=== PATIENT | female | born 1955 | race Two or more races ===

== ENCOUNTER 2024-02-04 19:15 | Inpatient (IN) | payer MEDICARE, OTHER ==
[~2024-02-04] VITALS: Ht 157.5 cm; Wt 60.8 kg
[2024-02-04 20:27] LABS: BASOPHILS % (AUTO) 0.3 % (0.0-2.0); EOSINOPHILS # (AUTO) 0.1 K/uL (0.0-0.7); EOSINOPHILS % (AUTO) 1.4 % (0.0-6.0); HEMATOCRIT 36 % (33-45); HEMOGLOBIN 11.8 g/dL (11.5-14.8); LYMPHOCYTES % (AUTO) 34.2 % (20.0-44.0); MEAN CORPUSCULAR HEMOGLOBIN 31 PG (26.0-33.0); MEAN CORPUSCULAR HGB CONC 33 g/dl (31.0-36.0); MEAN CORPUSCULAR VOLUME 94 fL (82-100); MONOCYTES # (AUTO) 1.3 K/uL (0.1-1.30); MONOCYTES % (AUTO) 15.3 % (2.0-12.0); NEUTROPHILS # (AUTO) 4.3 K/uL (1.8-8.9); NEUTROPHILS % (AUTO) 48.8 % (43.0-81.0); PLATELET COUNT (AUTO) 114 K/uL (150-450); RED BLOOD CELL COUNT(AUTO) 3.83 MIL/uL (4.0-5.2); RED CELL DISTRIBUTION WIDTH 15.2 % (11.5-15.0); WHITE BLOOD COUNT (AUTO) 8.7 K/uL (4.3-11.0)
[2024-02-04 20:31] LABS: CALCIUM, SERUM 9.5 mg/dL (8.5-10.1); CARBON DIOXIDE 27 mmol/L (21-32); CHLORIDE 102 mmol/L (98-107); CREATININE 1.4 mg/dL (0.6-1.3); GLUCOSE 174 mg/dL (74-106); POTASSIUM 3.8 mmol/L (3.5-5.1); SODIUM SERUM 136 mmol/L (136-145); UREA NITROGEN, BLOOD 36 mg/dL (7-18)
[2024-02-04 20:36] LABS: ALANINE AMINOTRANSFERASE 46 U/L (12-78); ALBUMIN 3.7 g/dL (3.4-5.0); ALCOHOL, BLOOD < 3 mg/dL (0-10); ALKALINE PHOSPHATASE 52 U/L (46-116); ASPARTATE AMINOTRANSFERASE 47 U/L (15-37); BILIRUBIN,DIRECT 0.2 mg/dL (0.0-0.2); BILIRUBIN,TOTAL 0.5 mg/dL (0.2-1.0); TOTAL PROTEIN, SERUM 7.9 g/dL (6.4-8.2)
[2024-02-04 20:37] LABS: ACETAMINOPHEN <10 ug/ml (10-30); SALICYLATE 1.2 mg/dL (2.8-20.0)
[2024-02-04 20:50] LABS: APPEARANCE,URINE CLEAR (CLEAR); BILIRUBIN,URINE NEGATIVE (NEGATIVE); BLOOD, URINE 2+ Ery/uL (NEGATIVE); COLOR,URINE YELLOW (YELLOW); KETONES,URINE TRACE mg/dL (NEGATIVE); LEUKOCYTE ESTERASE ,URINE NEGATIVE (NEGATIVE); NITRITE, URINE NEGATIVE (NEGATIVE); PH,URINE 6.5 (5.0-8.0); PROTEIN,URINE NEGATIVE (NEGATIVE); UGLUCOSE TRACE mg/dL (NEGATIVE); UROBILINOGEN,URINE 0.2 EU/dL (0.2)
[2024-02-04 21:35] LABS: ADD URINE CULTURE NO; BACTERIA,URINE None seen /HPF (None Seen); RBC,URINE 21-50 /HPF (0-2); WBC,URINE 0-2 /HPF (0-3)
[2024-02-04 21:39] LABS: ANISOCYTOSIS 1+; EOSINOPHILS % (MANUAL) 1 % (0-4); LYMPHOCYTES % (MANUAL) 44 % (16-48); MONOCYTES % (MANUAL) 11 % (0-11.0); NEUTROPHILS % (MANUAL) 44 (42-76); PLATELET ESTIMATE DECREASED
[2024-02-04 21:40] LABS: OVALOCYTES 1+
[2024-02-04 21:45] LABS: AMPHETAMINE, URINE NEGATIVE (NEGATIVE); BARBITURATE, URINE NEGATIVE (NEGATIVE); BENZODIAZEPINE, URINE NEGATIVE (NEGATIVE); CANNABINOID, URINE NEGATIVE (NEGATIVE); COCCAINE, URINE NEGATIVE (NEGATIVE); OPIATE, URINE NEGATIVE (NEGATIVE); PHENCYCLIDINE SCREEN,URINE NEGATIVE (NEGATIVE)
[2024-02-05] MEDS ORDERED: QUET25TA PO (08:48)
[2024-02-05] MEDS ORDERED: BENZ2TAB7 PO (08:48)
[2024-02-05] MEDS ORDERED: LATA7.5D EACHEYE (08:48)
[2024-02-05] MEDS ORDERED: CHOL500062 PO (08:48)
[2024-02-05] MEDS ORDERED: CLON1TAB12 PO (08:48)
[2024-02-05] MEDS ORDERED: DIVA500T2 PO (08:48)
[2024-02-05] MEDS ORDERED: QUET100T PO (08:48)
[2024-02-05 10:02] VITALS: BP 159/93; TEMP 97.9
[2024-02-05] MEDS ORDERED: MAG HYDROX/AL HYDROX/SIMETH 30 ML UDC PO PRN (11:30)
[2024-02-05] MEDS ORDERED: TEMAZEPAM 15 MG CAPSULE PO PRN (11:30)
[2024-02-05] MEDS ORDERED: clonazePAM 0.5 MG TABLET PO PRN (11:30)
[2024-02-05] MEDS ORDERED: ACETAMINOPHEN 325 MG TABLET PO PRN (11:30)
[2024-02-05] MEDS ORDERED: MAGNESIUM HYDROXIDE 30 ML UDC PO PRN (11:30)
[2024-02-05] MEDS: BLOOD SUGAR DIAGNOSTIC 1 EACH STRIP IN ONE (11:34)
[2024-02-05] MEDS ORDERED: MELA5TAB PO (11:53)
[2024-02-05] MEDS ORDERED: ACET-637 PO (11:53)
[2024-02-05] MEDS ORDERED: METF-881 PO (11:53)
[2024-02-05] MEDS ORDERED: INSULIN REGULAR, HUMAN 100 UNIT/ML 3 ML VIAL SQ PRN (13:00)
[2024-02-05] MEDS ORDERED: DEXTROSE 50%-WATER 50 ML DISP.SYRIN IV PRN ×2 (13:00→19:30)
[2024-02-05] MEDS ORDERED: *INSULIN REGULAR(HUMULIN R)HUM 100 UNIT/ML VIAL SQ PRN (13:00)
[2024-02-05] MEDS ORDERED: ACETAMINOPHEN ES 500 MG TABLET PO PRN (15:30)
[2024-02-05 16:00] VITALS: BP 167/72; TEMP 99.8; O2SAT 97
[2024-02-05] MEDS: BLOOD SUGAR DIAGNOSTIC 1 EACH STRIP VI SCH (16:35)
[2024-02-05] MEDS: BENZTROPINE MESYLATE (1 MG) 1 MG TABLET PO SCH (16:35)
[2024-02-05] MEDS ORDERED: DIVALPROEX SODIUM 500 MG TABLET.DR PO SCH (17:00)
[2024-02-05] MEDS ORDERED: BENZTROPINE MESYLATE (1 MG) 1 MG TABLET PO SCH (17:00)
[2024-02-05] MEDS ORDERED: METFORMIN XR 500 MG TAB.SR.24H PO SCH (17:00)
[2024-02-05 20:00] VITALS: BP 167/87; TEMP 98.8; O2SAT 97
[2024-02-05 20:30] VITALS: BP 167/87; TEMP 98.8; O2SAT 97
[2024-02-05] MEDS: BLOOD SUGAR DIAGNOSTIC 1 EACH STRIP IN SCH (20:53)
[2024-02-05] MEDS: INSULIN REGULAR, HUMAN 100 UNIT/ML 3 ML VIAL SQ PRN (21:01)
[2024-02-05] MEDS: LATANOPROST EYE DROP 0.005% 2.5 ML BOTTLE EACHEYE SCH (21:04)
[2024-02-05] MEDS: DIVALPROEX SODIUM 250 MG TABLET.DR PO SCH (21:04)
[2024-02-05] MEDS: OLANZAPINE ZYDIS 5 MG TAB.RAPDIS PO SCH (21:05)
[2024-02-05] MEDS ORDERED: Medication Not On Formulary EA (Melatonin 5 MG) PO SCH (22:00)
[2024-02-06] MEDS: GLUCERNA SHAKE 237 ML CAN PO SCH (07:46)
[2024-02-06 08:00] VITALS: BP 194/104; TEMP 97.6; O2SAT 98
[2024-02-06] MEDS ORDERED: hydrALAZINE HCL 25 MG TABLET PO SCH (08:30)
[2024-02-06] MEDS: hydrALAZINE HCL 25 MG TABLET PO PRN (09:19)
[2024-02-06] MEDS: CHOLECALCIFEROL 1,000 UNIT TABLET (VIT D3) PO SCH (09:19)
[2024-02-06 10:00] VITALS: BP 158/85
[2024-02-06 10:37] LABS: ALBUMIN 3.4 g/dL (3.4-5.0); BILIRUBIN,TOTAL 0.8 mg/dL (0.2-1.0); CREATININE 1.1 mg/dL (0.6-1.3); POTASSIUM 3.7 mmol/L (3.5-5.1); TOTAL PROTEIN, SERUM 7.9 g/dL (6.4-8.2)
[2024-02-06 10:45] LABS: THYROID STIMULATING HORMONE 2.454 uIU/mL (0.358-3.74)
[2024-02-06 10:46] LABS: CALCIUM, SERUM 9.9 mg/dL (8.5-10.1)
[2024-02-06 11:22] LABS: CREATININE 1.1 mg/dL (0.6-1.3)
[2024-02-06] MEDS: AMLODIPINE BESYLATE 5 MG TABLET PO SCH (13:20)
[2024-02-06 16:00] VITALS: BP 156/72; TEMP 97.8; O2SAT 96
[2024-02-06 17:51] LABS: APPEARANCE,URINE CLOUDY (CLEAR); BILIRUBIN,URINE 1+ (NEGATIVE); BLOOD, URINE 3+ Ery/uL (NEGATIVE); COLOR,URINE YELLOW (YELLOW); KETONES,URINE 1+ mg/dL (NEGATIVE); LEUKOCYTE ESTERASE ,URINE 2+ (NEGATIVE); NITRITE, URINE NEGATIVE (NEGATIVE); PROTEIN,URINE 1+ mg/dl (NEGATIVE); UGLUCOSE NEGATIVE (NEGATIVE)
[2024-02-06 19:12] LABS: ADD URINE CULTURE YES; BACTERIA,URINE 4+ /HPF (None Seen); RBC,URINE 51-80 /HPF (0-2); SQUAMOUS EPITHELIAL CELL,UR 0-2 /HPF (None Seen); WBC,URINE 21-50 /HPF (0-3)
[2024-02-06 21:04] VITALS: BP 103/64; TEMP 98.4; O2SAT 99
[2024-02-07 08:00] VITALS: BP 117/67; TEMP 98.1; O2SAT 100
[2024-02-07] MEDS: CEPHALEXIN MONOHYDRATE 500 MG CAPSULE PO SCH (11:44)
[2024-02-07 16:00] VITALS: BP 142/72; TEMP 98.7; O2SAT 95
[2024-02-07 20:23] VITALS: BP 123/73; TEMP 99.3; O2SAT 96
[2024-02-08 08:00] VITALS: BP 132/76; TEMP 97.8; O2SAT 97
[2024-02-08 16:00] VITALS: BP 121/67; TEMP 97.8; O2SAT 98
[2024-02-08 20:22] VITALS: BP 116/79; TEMP 99.1; O2SAT 98
[2024-02-09 08:00] VITALS: BP 137/87; TEMP 98; TEMP 98.1; O2SAT 98
[2024-02-09 09:23] LABS: CALCIUM, SERUM 9.9 mg/dL (8.5-10.1); CREATININE 1.3 mg/dL (0.6-1.3); POTASSIUM 3.8 mmol/L (3.5-5.1)
[2024-02-09 16:00] VITALS: BP 131/61; TEMP 98; O2SAT 97
[2024-02-09 20:00] VITALS: BP 116/66; TEMP 97.9; O2SAT 98
[2024-02-10 08:00] VITALS: BP 142/82; TEMP 98.6; O2SAT 99
[2024-02-10 16:00] VITALS: BP 115/69; TEMP 98.7; O2SAT 98
[2024-02-10 20:00] VITALS: BP 134/64; TEMP 98.6; O2SAT 98
[2024-02-11 08:00] VITALS: BP 139/82; TEMP 97.7; O2SAT 99
[2024-02-11 16:00] VITALS: BP 137/68; TEMP 97.9; O2SAT 98
[2024-02-11 20:00] VITALS: BP 129/66; TEMP 97.8; O2SAT 98
[2024-02-12 09:04] VITALS: BP 138/63; TEMP 98.6; O2SAT 100
[2024-02-12 16:41] VITALS: BP 138/63; TEMP 98.4; O2SAT 99
[2024-02-12 20:00] VITALS: BP 129/77; TEMP 98.3; O2SAT 99
[2024-02-12] MEDS: DIVALPROEX SODIUM 125 MG TABLET.DR PO SCH (20:15)
[2024-02-13 08:00] VITALS: BP 113/77; TEMP 98.6; O2SAT 97
[2024-02-13 16:00] VITALS: BP 130/69; TEMP 98; O2SAT 99
[2024-02-13 20:35] VITALS: BP 110/63; TEMP 97.9; O2SAT 93
[2024-02-14 07:52] LABS: BASOPHILS % (AUTO) 0.3 % (0.0-2.0); EOSINOPHILS # (AUTO) 0.1 K/uL (0.0-0.7); EOSINOPHILS % (AUTO) 1.3 % (0.0-6.0); HEMATOCRIT 30 % (33-45); HEMOGLOBIN 10.3 g/dL (11.5-14.8); LYMPHOCYTES # (AUTO) 2.5 K/uL (0.8-4.8); LYMPHOCYTES % (AUTO) 28.6 % (20.0-44.0); MEAN CORPUSCULAR HEMOGLOBIN 32 PG (26.0-33.0); MEAN CORPUSCULAR HGB CONC 34 g/dl (31.0-36.0); MEAN CORPUSCULAR VOLUME 93 fL (82-100); MONOCYTES % (AUTO) 11.8 % (2.0-12.0); NEUTROPHILS # (AUTO) 5.2 K/uL (1.8-8.9); PLATELET COUNT (AUTO) 213 K/uL (150-450); RED BLOOD CELL COUNT(AUTO) 3.26 MIL/uL (4.0-5.2); WHITE BLOOD COUNT (AUTO) 8.9 K/uL (4.3-11.0)
[2024-02-14 08:00] VITALS: BP 131/98; TEMP 97.9; O2SAT 98
[2024-02-14 08:04] LABS: ALBUMIN 2.5 g/dL (3.4-5.0); BILIRUBIN,TOTAL 0.3 mg/dL (0.2-1.0); CALCIUM, SERUM 9.4 mg/dL (8.5-10.1); CREATININE 0.9 mg/dL (0.6-1.3); POTASSIUM 4.1 mmol/L (3.5-5.1); TOTAL PROTEIN, SERUM 6.6 g/dL (6.4-8.2)
[2024-02-14] MEDS: DIVALPROEX SODIUM 125 MG CAP.SPRINK PO SCH ×2 (08:49→21:11)
[2024-02-14 16:00] VITALS: BP 112/88; TEMP 98.7; O2SAT 98
[2024-02-14 20:20] VITALS: BP 145/75; TEMP 98.1; O2SAT 97
[2024-02-15 08:00] VITALS: BP 135/64; TEMP 97.7; O2SAT 96
[2024-02-15 16:00] VITALS: BP 141/69; TEMP 97.9; O2SAT 96
[2024-02-15 20:38] VITALS: BP 117/60; TEMP 98.9; O2SAT 96
[2024-02-16 08:00] VITALS: BP 146/65; TEMP 97.9; O2SAT 98
[2024-02-16 16:00] VITALS: BP 141/77; TEMP 98.1; O2SAT 97
[2024-02-16 20:53] VITALS: BP 120/60; TEMP 98.4; O2SAT 99
[2024-02-17 08:00] VITALS: BP 142/80; TEMP 97.9; O2SAT 98
[2024-02-17 16:00] VITALS: BP 126/67; TEMP 98.8; O2SAT 98
[2024-02-17 20:00] VITALS: BP 129/57; TEMP 98.5; O2SAT 98
[2024-02-18 07:48] LABS: BASOPHILS % (AUTO) 0.3 % (0.0-2.0); EOSINOPHILS # (AUTO) 0.2 K/uL (0.0-0.7); EOSINOPHILS % (AUTO) 1.7 % (0.0-6.0); HEMATOCRIT 29 % (33-45); HEMOGLOBIN 10.1 g/dL (11.5-14.8); LYMPHOCYTES # (AUTO) 2.5 K/uL (0.8-4.8); MEAN CORPUSCULAR HEMOGLOBIN 32 PG (26.0-33.0); MEAN CORPUSCULAR HGB CONC 35 g/dl (31.0-36.0); MEAN CORPUSCULAR VOLUME 92 fL (82-100); MONOCYTES # (AUTO) 0.8 K/uL (0.1-1.30); MONOCYTES % (AUTO) 8.2 % (2.0-12.0); NEUTROPHILS # (AUTO) 5.8 K/uL (1.8-8.9); NEUTROPHILS % (AUTO) 62.8 % (43.0-81.0); PLATELET COUNT (AUTO) 279 K/uL (150-450); RED BLOOD CELL COUNT(AUTO) 3.14 MIL/uL (4.0-5.2); RED CELL DISTRIBUTION WIDTH 14.2 % (11.5-15.0); WHITE BLOOD COUNT (AUTO) 9.3 K/uL (4.3-11.0)
[2024-02-18 08:00] VITALS: BP 120/69; TEMP 98.4; O2SAT 99
[2024-02-18 08:00] LABS: CALCIUM, SERUM 9.6 mg/dL (8.5-10.1); CREATININE 0.9 mg/dL (0.6-1.3); MAGNESIUM 2.3 mg/dL (1.8-2.4); POTASSIUM 3.8 mmol/L (3.5-5.1)
[2024-02-18 16:00] VITALS: BP 147/69; TEMP 98.6; O2SAT 98
[2024-02-18 20:00] VITALS: BP 134/67; TEMP 98.2; O2SAT 96
[2024-02-19 08:00] VITALS: BP 140/87; TEMP 98; O2SAT 98
[2024-02-19 16:00] VITALS: BP 125/65; TEMP 98.2; O2SAT 96
[2024-02-19 19:23] LABS: APPEARANCE,URINE CLOUDY (CLEAR); BILIRUBIN,URINE NEGATIVE (NEGATIVE); BLOOD, URINE 3+ Ery/uL (NEGATIVE); COLOR,URINE YELLOW (YELLOW); KETONES,URINE NEGATIVE (NEGATIVE); LEUKOCYTE ESTERASE ,URINE 3+ (NEGATIVE); NITRITE, URINE NEGATIVE (NEGATIVE); PROTEIN,URINE 1+ mg/dl (NEGATIVE); UGLUCOSE 1+ mg/dL (NEGATIVE)
[2024-02-19 19:40] LABS: ADD URINE CULTURE YES; BACTERIA,URINE 3+ /HPF (None Seen); MUCUS,URINE Moderate /LPF (None Seen); RBC,URINE 21-50 /HPF (0-2); SQUAMOUS EPITHELIAL CELL,UR None Seen /HPF (None Seen); WBC,URINE TOO NUMEROUS TO COUN /HPF (0-3)
[2024-02-19 20:00] VITALS: BP 130/68; TEMP 98.1; O2SAT 98
[2024-02-19] MEDS: LEVOFLOXACIN (250MG) 250 MG TABLET PO SCH (21:08)
[2024-02-20 08:00] VITALS: BP 130/59; TEMP 98.4; O2SAT 97
[2024-02-20 16:00] VITALS: BP 124/65; TEMP 98.2; O2SAT 98
[2024-02-20 20:13] VITALS: BP 120/58; TEMP 98.8; O2SAT 96
[2024-02-21 08:00] VITALS: BP 139/74; TEMP 98.7; O2SAT 99
[2024-02-21 08:05] VITALS: BP 139/74
== END 2024-02-21 13:45 | DRG 885 ==
LOC: ER 19:33 → GPS 02-05 09:24
PROVIDERS: ADMIT Psychiatry & Neurology Psychiatry; ATTEND Student in an Organized Health Care Education/Training Program
DX: F29 Unspecified psychosis not due to a substance or known physiological condition (principal); N17.0 Acute kidney failure with tubular necrosis; E44.0 Moderate protein-calorie malnutrition; N39.0 Urinary tract infection, site not specified; F03.93 Unspecified dementia, unspecified severity, with mood disturbance; E11.9 Type 2 diabetes mellitus without complications; E86.0 Dehydration; D69.6 Thrombocytopenia, unspecified; I10 Essential (primary) hypertension; Z20.822 Contact with and (suspected) exposure to COVID-19; Z73.6 Limitation of activities due to disability; F31.9 Bipolar disorder, unspecified; F20.0 Paranoid schizophrenia; R33.8 Other retention of urine; Z68.24 Body mass index [BMI] 24.0-24.9, adult; B96.20 Unspecified Escherichia coli [E. coli] as the cause of diseases classified elsewhere; Z79.84 Long term (current) use of oral hypoglycemic drugs
CPT/HCPCS: 36415; 80048-TC; 80053-TC; 80061-TC; 80076-TC; 80164-TC; 81001; 82565-TC; 82962-TC; 83735-TC; 84443-TC; 85025-TC; 87086-TC; 92526; 92611-TC; 97110-TC; 97116-TC; 97530-TC; G0480; J1815

== ENCOUNTER 2024-12-22 17:52 | Inpatient (IN) | payer MEDICARE, MEDICAID ==
[~2024-12-22] VITALS: Ht 160 cm; Wt 64.0 kg
[~2024-12-22 17:52] MED LIST: ACET-637 PO; BENZ2TAB7 PO; CHOL500062 PO; CLON1TAB12 PO; DIVA500T2 PO; LATA7.5D EACHEYE; MELA5TAB PO; METF-881 PO; QUET100T PO; QUET25TA PO
[2024-12-22 18:18] LABS: BASOPHILS % (AUTO) 0.7 % (0.0-2.0); EOSINOPHILS # (AUTO) 0.2 K/uL (0.0-0.7); EOSINOPHILS % (AUTO) 3.4 % (0.0-6.0); HEMATOCRIT 39 % (33-45); HEMOGLOBIN 13.3 g/dL (11.5-14.8); LYMPHOCYTES # (AUTO) 3.2 K/uL (0.8-4.8); LYMPHOCYTES % (AUTO) 47.4 % (20.0-44.0); MEAN CORPUSCULAR HEMOGLOBIN 31 PG (26.0-33.0); MEAN CORPUSCULAR HGB CONC 35 g/dl (31.0-36.0); MEAN CORPUSCULAR VOLUME 89 fL (82-100); MONOCYTES # (AUTO) 0.7 K/uL (0.1-1.30); MONOCYTES % (AUTO) 10.9 % (2.0-12.0); NEUTROPHILS # (AUTO) 2.6 K/uL (1.8-8.9); NEUTROPHILS % (AUTO) 37.6 % (43.0-81.0); PLATELET COUNT (AUTO) 148 K/uL (150-450); RED BLOOD CELL COUNT(AUTO) 4.32 MIL/uL (4.0-5.2); RED CELL DISTRIBUTION WIDTH 14.6 % (11.5-15.0); WHITE BLOOD COUNT (AUTO) 6.8 K/uL (4.3-11.0)
[2024-12-22] MEDS ORDERED: CRAN400C PO (18:22)
[2024-12-22] MEDS ORDERED: AMLO5TAB4 PO (18:22)
[2024-12-22] MEDS ORDERED: BENZ1TAB7 PO (18:22)
[2024-12-22] MEDS ORDERED: HYDR-4076 PO (18:22)
[2024-12-22] MEDS ORDERED: METF-442 PO (18:22)
[2024-12-22] MEDS ORDERED: MULT-213 PO (18:22)
[2024-12-22] MEDS ORDERED: OLAN10TA3 PO (18:22)
[2024-12-22] MEDS ORDERED: GLUC1KIT SQ (18:22)
[2024-12-22 18:25] LABS: CALCIUM, SERUM 9.2 mg/dL (8.5-10.1); CARBON DIOXIDE 28 mmol/L (21-32); CHLORIDE 105 mmol/L (98-107); CREATININE 0.6 mg/dL (0.6-1.3); GLUCOSE 160 mg/dL (74-106); POTASSIUM 5.5 mmol/L (3.5-5.1); SODIUM SERUM 137 mmol/L (136-145); UREA NITROGEN, BLOOD 13 mg/dL (7-18)
[2024-12-22 18:31] LABS: ALANINE AMINOTRANSFERASE 37 U/L (12-78); ALBUMIN 3.2 g/dL (3.4-5.0); ALKALINE PHOSPHATASE 60 U/L (46-116); ASPARTATE AMINOTRANSFERASE 62 U/L (15-37); BILIRUBIN,TOTAL 0.4 mg/dL (0.2-1.0); TOTAL PROTEIN, SERUM 7.2 g/dL (6.4-8.2)
[2024-12-22 18:49] LABS: APPEARANCE,URINE CLEAR (CLEAR); COLOR,URINE YELLOW (YELLOW)
[2024-12-22 18:50] LABS: BILIRUBIN,URINE NEGATIVE (NEGATIVE); BLOOD, URINE TRACE Ery/uL (NEGATIVE); KETONES,URINE TRACE mg/dL (NEGATIVE); LEUKOCYTE ESTERASE ,URINE TRACE (NEGATIVE); NITRITE, URINE NEGATIVE (NEGATIVE); PROTEIN,URINE NEGATIVE (NEGATIVE); UGLUCOSE NEGATIVE (NEGATIVE)
[2024-12-22 18:51] LABS: ADD URINE CULTURE NO; BACTERIA,URINE Few /HPF (None Seen); SQUAMOUS EPITHELIAL CELL,UR Few /HPF (None Seen); WBC,URINE 0-2 /HPF (0-3)
[2024-12-22] MEDS: IV NS 0.9% 1,000 ML IV ONE (20:30)
[2024-12-22] MEDS ORDERED: hydrALAZINE HCL 25 MG TABLET PO PRN (20:30)
[2024-12-22] MEDS ORDERED: ONDANSETRON HCL/PF 4 MG/2 ML VIAL IVP PRN (20:30)
[2024-12-22] MEDS ORDERED: MAG HYDROX/AL HYDROX/SIMETH 30 ML UDC PO PRN (20:30)
[2024-12-22] MEDS ORDERED: MAGNESIUM HYDROXIDE 30 ML UDC PO PRN (20:30)
[2024-12-22] MEDS ORDERED: DEXTROSE 50%-WATER 50 ML DISP.SYRIN IV PRN (20:30)
[2024-12-22] MEDS: SODIUM ZIRCONIUM CYCLOSILICATE 10 GM POWD.PACK PO SCH (20:30)
[2024-12-22] MEDS ORDERED: ACETAMINOPHEN 325 MG TABLET PO PRN (20:30)
[2024-12-22] MEDS ORDERED: SODIUM ZIRCONIUM CYCLOSILICATE 10 GM POWD.PACK ONE (21:31)
[2024-12-22] MEDS: OLANZAPINE 10 MG TABLET PO SCH (22:00)
[2024-12-22] MEDS: LATANOPROST EYE DROP 0.005% 2.5 ML BOTTLE EACHEYE SCH (22:00)
[2024-12-22] MEDS: BLOOD SUGAR DIAGNOSTIC 1 EACH STRIP IN SCH (22:29)
[2024-12-22] MEDS ORDERED: INSULIN REGULAR, HUMAN 100 UNIT/ML 10 ML VIAL ONE (22:31)
[2024-12-22] MEDS: INSULIN REGULAR, HUMAN 100 UNIT/ML 3 ML VIAL SQ PRN (22:32)
[2024-12-22 23:30] VITALS: BP 118/52; TEMP 98.2; O2SAT 98
[2024-12-23 01:05] VITALS: BP 118/52; TEMP 98.2; O2SAT 98
[2024-12-23 07:08] LABS: BASOPHILS % (AUTO) 0.1 % (0.0-2.0); EOSINOPHILS # (AUTO) 0.2 K/uL (0.0-0.7); EOSINOPHILS % (AUTO) 3.3 % (0.0-6.0); HEMATOCRIT 34 % (33-45); HEMOGLOBIN 11.9 g/dL (11.5-14.8); LYMPHOCYTES # (AUTO) 3.1 K/uL (0.8-4.8); LYMPHOCYTES % (AUTO) 45.3 % (20.0-44.0); MEAN CORPUSCULAR HEMOGLOBIN 32 PG (26.0-33.0); MEAN CORPUSCULAR HGB CONC 35 g/dl (31.0-36.0); MEAN CORPUSCULAR VOLUME 91 fL (82-100); MONOCYTES % (AUTO) 14.4 % (2.0-12.0); NEUTROPHILS # (AUTO) 2.5 K/uL (1.8-8.9); NEUTROPHILS % (AUTO) 36.9 % (43.0-81.0); PLATELET COUNT (AUTO) 132 K/uL (150-450); RED BLOOD CELL COUNT(AUTO) 3.71 MIL/uL (4.0-5.2); RED CELL DISTRIBUTION WIDTH 14.4 % (11.5-15.0); WHITE BLOOD COUNT (AUTO) 6.8 K/uL (4.3-11.0)
[2024-12-23 07:16] LABS: CALCIUM, SERUM 8.7 mg/dL (8.5-10.1); CREATININE 0.6 mg/dL (0.6-1.3); MAGNESIUM 1.7 mg/dL (1.8-2.4); PHOSPHORUS 2.9 mg/dL (2.5-4.9); POTASSIUM 3.2 mmol/L (3.5-5.1)
[2024-12-23 08:30] VITALS: BP 120/98; TEMP 97.3; O2SAT 98
[2024-12-23] MEDS ORDERED: Medication Not On Formulary EA (Cranberry 450 MG) PO SCH (09:00)
[2024-12-23] MEDS: CHOLECALCIFEROL 1,000 UNIT TABLET (VIT D3) PO SCH (09:31)
[2024-12-23] MEDS: DIVALPROEX SODIUM 500 MG TABLET.DR PO SCH (09:31)
[2024-12-23] MEDS: MULTIVIT W/MINERALS 1 TAB TABLET PO SCH (09:32)
[2024-12-23] MEDS: MAGNESIUM OXIDE 400 MG TABLET PO ONE (09:32)
[2024-12-23] MEDS: BENZTROPINE MESYLATE (1 MG) 1 MG TABLET PO SCH (09:32)
[2024-12-23] MEDS: POTASSIUM CHLORIDE 20 MEQ POWDER PACKET PO ONE (09:33)
[2024-12-23] MEDS: AMLODIPINE BESYLATE 5 MG TABLET PO SCH (09:35)
[2024-12-23] MEDS: IV NS 0.9% 500 ML IV PRN (10:14)
[2024-12-23] MEDS: CEFTRIAXONE 1 G in IV D5W 50 ML IV SCH (15:30)
[2024-12-23 16:00] VITALS: BP 121/69; TEMP 97.7; O2SAT 94
[2024-12-23 22:07] VITALS: BP 125/88; TEMP 97.3; O2SAT 98
[2024-12-24 07:06] LABS: BASOPHILS % (AUTO) 0.2 % (0.0-2.0); EOSINOPHILS % (AUTO) 0.1 % (0.0-6.0); HEMATOCRIT 32 % (33-45); LYMPHOCYTES # (AUTO) 1.2 K/uL (0.8-4.8); LYMPHOCYTES % (AUTO) 9.7 % (20.0-44.0); MEAN CORPUSCULAR HEMOGLOBIN 31 PG (26.0-33.0); MEAN CORPUSCULAR HGB CONC 35 g/dl (31.0-36.0); MEAN CORPUSCULAR VOLUME 89 fL (82-100); MONOCYTES # (AUTO) 1.4 K/uL (0.1-1.30); MONOCYTES % (AUTO) 11.6 % (2.0-12.0); NEUTROPHILS # (AUTO) 9.8 K/uL (1.8-8.9); NEUTROPHILS % (AUTO) 78.4 % (43.0-81.0); PLATELET COUNT (AUTO) 121 K/uL (150-450); RED BLOOD CELL COUNT(AUTO) 3.56 MIL/uL (4.0-5.2); RED CELL DISTRIBUTION WIDTH 14.6 % (11.5-15.0); WHITE BLOOD COUNT (AUTO) 12.5 K/uL (4.3-11.0)
[2024-12-24 07:25] LABS: CALCIUM, SERUM 8.5 mg/dL (8.5-10.1); CREATININE 0.7 mg/dL (0.6-1.3); POTASSIUM 3.2 mmol/L (3.5-5.1)
[2024-12-24 08:00] VITALS: BP 100/49; TEMP 97.7; O2SAT 90
[2024-12-24] MEDS: POTASSIUM CHLORIDE 20 MEQ POWDER PACKET PO SCH (09:56)
[2024-12-24] MEDS ORDERED: POTASSIUM CHLORIDE 20 MEQ POWDER PACKET PO ONE (10:00)
[2024-12-24 20:00] VITALS: BP 111/58; TEMP 98.1; O2SAT 98
[2024-12-25 06:39] LABS: BASOPHILS % (AUTO) 0.3 % (0.0-2.0); EOSINOPHILS # (AUTO) 0.2 K/uL (0.0-0.7); EOSINOPHILS % (AUTO) 2.5 % (0.0-6.0); HEMATOCRIT 35 % (33-45); HEMOGLOBIN 12.2 g/dL (11.5-14.8); LYMPHOCYTES # (AUTO) 3.1 K/uL (0.8-4.8); LYMPHOCYTES % (AUTO) 33.4 % (20.0-44.0); MEAN CORPUSCULAR HEMOGLOBIN 32 PG (26.0-33.0); MEAN CORPUSCULAR HGB CONC 35 g/dl (31.0-36.0); MEAN CORPUSCULAR VOLUME 91 fL (82-100); MONOCYTES # (AUTO) 0.9 K/uL (0.1-1.30); MONOCYTES % (AUTO) 10.1 % (2.0-12.0); NEUTROPHILS % (AUTO) 53.7 % (43.0-81.0); PLATELET COUNT (AUTO) 132 K/uL (150-450); RED BLOOD CELL COUNT(AUTO) 3.84 MIL/uL (4.0-5.2); RED CELL DISTRIBUTION WIDTH 14.8 % (11.5-15.0); WHITE BLOOD COUNT (AUTO) 9.3 K/uL (4.3-11.0)
[2024-12-25 06:45] LABS: CALCIUM, SERUM 9.2 mg/dL (8.5-10.1); CREATININE 0.7 mg/dL (0.6-1.3); POTASSIUM 3.3 mmol/L (3.5-5.1)
[2024-12-25 08:16] VITALS: BP 113/41; TEMP 97.3; O2SAT 99
[2024-12-25 10:06] VITALS: BP 113/62
[2024-12-25] MEDS: POTASSIUM CHLORIDE 20 MEQ POWDER PACKET PO ONE (10:19)
[2024-12-25] MEDS ORDERED: CIPR-262 PO (10:48)
[2024-12-25 13:30] LABS: THYROID STIMULATING HORMONE 4.28 uIU/mL (0.358-3.74)
[2024-12-27 05:12] LABS: FOLIC ACID > 20.0 ng/mL (>3.0)
== END 2024-12-25 15:25 | DRG 689 ==
LOC: ER 17:55 → MED 22:45
DX: N39.0 Urinary tract infection, site not specified (principal); G93.41 Metabolic encephalopathy; F01.54 Vascular dementia, unspecified severity, with anxiety; D68.59 Other primary thrombophilia; E44.0 Moderate protein-calorie malnutrition; E86.0 Dehydration; F25.9 Schizoaffective disorder, unspecified; Z74.09 Other reduced mobility; F41.1 Generalized anxiety disorder; I10 Essential (primary) hypertension; E87.5 Hyperkalemia; E87.6 Hypokalemia; E11.9 Type 2 diabetes mellitus without complications; Z79.84 Long term (current) use of oral hypoglycemic drugs; Z79.899 Other long term (current) drug therapy; E88.09 Other disorders of plasma-protein metabolism, not elsewhere classified; D69.6 Thrombocytopenia, unspecified
CPT/HCPCS: 36415; 71045-TC; 80048-TC; 80076-TC; 81001; 82607-TC; 82962-TC; 83735-TC; 83921; 84100-TC; 84425; 84443-TC; 84484-TC; 85025-TC; 87081-TC; 97110-TC; 97112-TC; 97530-TC; A4223; G0378; J0696; J1815; J7040; J7050; J7060